=== PATIENT | female | born 1970 | race Caucasian/White ===

== ENCOUNTER 2020-08-31 10:25 | Outpatient (CLI) | payer SELFPAY ==
--- NOTE | 2020-08-31 10:35 | USCV_ITS ---
Martha Curran Age: 50 Gender: F : 1970 Exam Date: 08/31/2020 10:52 Ordering Phys: Maico Winter XX Technologist: KATIE Exam Location: [facility] – [place] Indication: Left leg swelling HISTORY: Left lower extremity swelling. PROCEDURES: Comparison: none available. Venous duplex imaging was performed in only the left lower extremity. The following venous structures were evaluated: common femoral vein, profunda vein, proximal portion of the greater saphenous vein, superficial femoral vein, and the popliteal vein. In addition, the posterior tibial and peroneal trunk were evaluated. Serial compression and spectral Doppler flow evaluation were performed. FINDINGS: POSITIVE DEEP VEIN THROMBOSIS OF THE LEFT COMMON FEMORAL VEIN, PROXIMAL DEEP FEMORAL VEIN, FEMORAL VEIN, POPLITEAL VEIN AND PERONEAL TRUNK. CONCLUSIONS Acute left lower extremity deep venous thrombosis. Dr. Bridgett Eid DO (Electronically Signed) Final Date: 31 August 2020 11:20 S
== END 2020-08-31 10:26 | disposition home or self-care (01) ==
PROVIDERS: PCP Nurse Practitioner Family; Visit Provider Nurse Practitioner Family
DX: M79.89 Other specified soft tissue disorders (principal); I82.492 Acute embolism and thrombosis of other specified deep vein of left lower extremity
CPT/HCPCS: 93971

== ENCOUNTER 2020-08-31 11:24 | Observation (INO) | payer SELFPAY ==
[2020-08-31] VITALS (9 sets, daily range): BP systolic 152–182; BP diastolic 84–116; PULSE 76–103; RESP 17–18; TEMP 36.6–36.9; O2SAT 96–99; BMI 37.5
--- NOTE | 2020-08-31 12:30 | CT_ITS ---
WS: [id number] CT CHEST ANGIOGRAPHY WITH REFORMATS HISTORY: r/o PE. she has dvt and tachycardia TECHNIQUE: Contiguous axial images are obtained through the chest during arterial injection of intrav enous contrast. Images are reconstructed to evaluate the pulmonary arteries. MIP imaging also reviewe d. All CT scans at [facility] use at least one of these dose optimization techniques: aut omated exposure control; mA and/or kV adjustment per patient size (includes targeted exams where dose is matched to clinical indication); or iterative reconstruction. CONTRAST: Omnipaque 350; 95 mL IV. DLP: 599.09 mGy.cm COMPARISON: None available. Adequate opacification of the pulmonary arteries. Significant embolic burden beginning in the distal RIGHT main pulmonary artery extending into the lobar through subsegmental arteries of the RIGHT lower lobe. No definite emboli in the upper lung burgess the RIGHT middle lobe. No LEFT lower lobe and volu me disease. Normal size aorta. Pulmonary artery is slightly enlarged. There is no RIGHT heart strain at this time . LEFT ventricle is mildly dilated. No pericardial or pleural effusions. Benign pulmonary granulomas. No pulmonary infarct or nodules. Linear atelectasis near the lingula. Increased soft tissue in the AP window is probably a cluster of lymph nodes. The entire cluster measu res 19 x 18 mm. No additional suspicious lymph nodes. Prior cholecystectomy. No adrenal mass. Visualized liver and spleen are normal. CT/CT angio chest PE protcl [id number] IMPRESSION: 1. Moderate pulmonary embolic burden beginning in the distal RIGHT main pulmon gabino artery into the RIGHT lower lobe pulmonary artery. 2. No RIGHT heart strain. 3. No pneumonia or infarct. 4. Indeterminate cluster of lymph nodes at the AP window. Recommend follow-up chest CT in 3 months with IV contrast.
--- NOTE | 2020-08-31 12:31 | ECG_ITS ---
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 Measurements Intervals [place] Rate: 77 P: 2 SD: 131 QRS: -16 QRSD: 102 T: -37 QT: 382 QTc: 433 Interpretive Statements SINUS RHYTHM INFERIOR MYOCARDIAL INFARCTION , OF INDETERMINATE AGE [40+ ms Q WAVE AND/OR ST/T ABNORMALITY IN II/aVF] No previous ECG available for comparison Electronically Signed On 09-01-2020 7:19:36 CDT by Bri Meraz M.D. [id number]
--- NOTE | 2020-08-31 12:34 | PC.PHAR ---
pt states she hasnt been on rx medications for over a year pt states she was waiting on her insurance-pt states she use to be on novolin r-yenvwn-xcorvxaukz-and zocor but hasnt had in a year-pt states she has only been taking ibu and tylenol
[2020-08-31 13:17] LABS: Basophils % 0.5 %; Eosinophils # 0.2 10^3/uL (0.0-0.8); Eosinophils % 3.7 %; Hematocrit 42.9 % (37.0-47.0); Hemoglobin 14.6 g/dL (11.5-15.3); Lymphocytes # 2.2 10^3/uL (0.8-4.8); Lymphocytes % 33.5 %; Mean Corpuscular Hemoglobin 29.3 pg (28.0-34.0); Mean Corpuscular Volume 86.1 fL (81-99); Mean Platelet Volume 9.8 fL (7.4-10.4); Monocytes # 0.4 10^3/uL (0.2-0.9); Monocytes % 6.6 %; Neutrophils # 3.63 10^3/uL (1.8-7.7); Neutrophils % 55.5 %; Nucleated Red Blood Cells % 0 %; Platelet Count 188 10^3/cmm (130-400); Red Blood Count 4.98 10^6/uL (4.1-5.3); Red Cell Distribution Width 12.5 % (12.1-15.1); White Blood Count 6.5 10^3/uL (4.0-10.0)
[2020-08-31] MEDS: iohexol 300 mg/mL 100 mL Btl IV (13:37)
[2020-08-31 13:40] LABS: Troponin(5th) Baseline 7 ng/L (0-10)
[2020-08-31 13:44] LABS: Alanine Aminotransferase 11 U/L (0-33); Alkaline Phosphatase 90 IU/L (35-105); Anion Gap 16.1 (5-19); Aspartate Amino Transferase 14 U/L (0-32); Blood Urea Nitrogen 8 mg/dL (6-20); Calcium 8.7 mg/dL (8.5-10.5); Carbon Dioxide 24 mmol/L (22-29); Chloride 99 mmol/L (98-107); Globulin 2.6 g/dL (1.3-4.6); Glomerular Filtration Rate 131.1 mL/min (90-130); Glucose 273 mg/dL (65-115); Osmolality Calculated 288 mOsm/kg (285-295); Potassium 4.1 mmol/L (3.5-5.1); Sodium 135 mmol/L (136-145); Total Bilirubin 0.2 mg/dL (0.15-1.2); Total Protein 6.6 g/dL (6.6-8.7)
--- NOTE | 2020-08-31 14:17 | ED_ITS ---
HPI - Extremity Problem General: Chief complaint: Extremity Problem,Nontraumatic Stated complaint: BLOOD CLOT Time Seen by Provider: 08/31/20 12:13 History of Present Illness: HPI Narrative: The patient comes to the ER with a confirmed ultrasound showing left lower extremity DVT to the femoral vein. Extending distally to the peroneal vein. She says she has had left leg pain and swelling for the past week at home and her primary ordered an ultrasound which was done this morning and showed a blood clot so she was told to go to the ER. Denies shortness of breath and chest pain but her pulse was 103 on arrival. MD Complaint: extremity pain and extremity swelling Onset (ago): day(s) (6) Pain Consistency: constant Location: left Quality: sharp Radiation: none Relieving factors: nothing Associated symptoms: Reports no associated symptoms; Deny chest pain or rash Review of Systems General: Reports: 10 or more systems reviewed and unremarkable except in HPI and below Const: Denies: fatigue Eyes: Denies: change in vision, blurry vision or eye redness ENMT: Denies: throat pain, swelling of lips/tongue, ear or mastoid pain or nasal congestion Card: Denies: chest pain, palpitations, irregular heart rhythm, edema, dyspnea on exertion or orthopnea Resp: Denies: dyspnea, productive cough or non-productive cough GI: Denies: abdominal pain, diarrhea or GI cramping : Denies: flank pain, difficulty voiding, urinary frequency or urinary urgency Musc: Reports: extremity pain and extremity swelling; Denies: neck pain, back pain, joint pain, joint redness, limited range of motion or muscle weakness Skin/Breast: Denies: rash, pruritus, erythema, skin pain or skin tenderness Neuro: Denies: headache(s), numbness in extremities, weakness in extremities, sensory changes, difficulty walking, dizziness, confusion or Slurred speech present Psych: Denies: anxiety or depression Endo: Denies: polyuria All/Imm: Denies: urticaria, throat swelling or tongue swelling Physical Exam Const: COMMON NORMALS: no acute distress, average body habitus, patient oriented x3, no limitations, healthy appearing, alert and well nourished GENERAL APPEARANCE: cooperative, comfortable, well kempt and well developed ORIENTATION/CONSCIOUSNESS: Yes awake, Yes oriented to person, Yes oriented to place and Yes oriented to time HENMT: COMMON NORMALS: normocephalic, external ears normal and Normal external nose present HEAD & SCALP: normal to inspection and normocephalic NOSE: Normal external nose present EXTERNAL EAR: Yes external ears normal MOUTH: Normal oral and palatal mucosa present THROAT: posterior oropharynx normal Eye: COMMON NORMALS: Equal, round and reactive pupils present and EOMs intact bilaterally GENERAL EYE: appearance normal, both eyes and all related structures PUPIL: Yes Equal, round and reactive pupils present Neck/C-Spine: COMMON NORMALS: full ROM, no lymphadenopathy, no meningeal signs and no JVD GENERAL: Yes normal visual inspection Lymph: LYMPHATIC: no lymphadenopathy noted Chest: COMMONS NORMALS: normal inspection of the chest and normal palpation of entire chest wall Resp: COMMON NORMALS: normal respiratory effort, No retractions, No use of accessory muscles, clear to auscultation bilaterally and percussion normal EFFORT & INSPECTION: Yes able to speak in complete sentences AUSCULTATION: clear to auscultation bilaterally PERCUSSION: percussion normal Cardio: COMMON NORMALS: no JVD, regular rhythm, S1 normal heart sound present, S2 normal heart sound present and Peripheral pulses 2+ throughout RATE: tachycardic RHYTHM: regular rhythm HEART SOUNDS: S1 normal heart sound present and S2 normal heart sound present PERIPHERAL PULSES: Peripheral pulses 2+ throughout GI: COMMON NORMALS: Normal to inspection, nondistended, normoactive bowel sounds present, Soft to palpation, non-tender and no masses INSPECTION: Yes normal to inspection PALPATION: Yes Soft to palpation : COMMON NORMALS: Yes no CVA tenderness BLADDER/KIDNEY EXAM: Yes no CVA tenderness Back/Pelvis: COMMON NORMALS: no CVA tenderness, thoracic and lumbar spine normal to inspection, no thoracic nor lumbar tenderness and thoraco-lumbar ROM normal Extremity: COMMON NORMALS: normal to inspection, full ROM, capillary refill normal, no joint enlargement and no pedal edema GENERAL: Yes normal exam except as noted Neuro: COMMON NORMALS: patient oriented x3, CN's II-XII intact bilaterally, moves all extremities, no focal motor deficits, no sensory deficits noted and gait normal SENSORIUM/ORIENTATION: Yes alert, Yes oriented to person, Yes oriented to place and Yes oriented to time MENINGEAL SIGNS: Yes no meningeal signs Psych: COMMON NORMALS: mental status grossly normal, Normal thought process present, cooperative, normal affect and speech normal APPEARANCE: Yes well kempt ATTITUDE: Yes calm SPEECH: Yes normal speech THOUGHT PROCESS: Normal thought process present Skin: COMMON NORMALS: no rashes or lesions noted GENERAL SKIN EXAM: no rashes or lesions noted Course Vital Signs: Vital signs: Vital Signs Temperature 98.4 F 08/31/20 11:57 Pulse Rate 88 08/31/20 15:08 Respiratory Rate 18 08/31/20 15:08 Blood Pressure 152/91 08/31/20 12:45 Pulse Oximetry 98 08/31/20 15:08 MDM - Extremity (Nontraumatic) MDM Narrative: Medical decision making narrative: The patient is a 50-year-old female who comes to the ER with a left lower extremity DVT from the peroneal to the common femoral vein. Her heart rate was also elevated on arrival so prompted a PE investigation which does show moderate PE burden beginning in the right distal main pulmonary artery into the right lower lobe pulmonary artery. No right heart strain. No pneumonia or infarct. Discussed with Dr. Denney who accepts for admission. She was started on Lovenox subcu. Lab Data: Labs: Lab Results 08/31/20 08/31/20 08/31/20 Range/Units 13:10 13:10 13:10 WBC 6.5 (4.0-10.0) 10^3/ uL RBC 4.98 (4.1-5.3) 10^6/u L Hgb 14.6 (11.5-15.3) g/dL Hct 42.9 (37.0-47.0) % MCV 86.1 (81-99) fL MCH 29.3 (28.0-34.0) pg MCHC 34.0 (30.0-36.0) g/dL RDW 12.5 (12.1-15.1) % Plt Count 188 (130-400) 10^3/c mm MPV 9.8 (7.4-10.4) fL Neut % (Auto) 55.5 % Lymph % (Auto) 33.5 % Bowie % (Auto) 6.6 % Eos % (Auto) 3.7 % Baso % (Auto) 0.5 % Neut # (Auto) 3.63 (1.8-7.7) 10^3/u L Lymph # (Auto) 2.2 (0.8-4.8) 10^3/u L Bowie # (Auto) 0.4 (0.2-0.9) 10^3/u L Eos # (Auto) 0.2 (0.0-0.8) 10^3/u L Baso # (Auto) 0.0 (0.0-0.1) 10^3/u L Nucleated RBC % (a uto) 0 % Nucleated RBCs # 0.0 /100WBC Sodium 135 L (136-145) mmol/L Potassium 4.1 (3.5-5.1) mmol/L Chloride 99 (98-107) mmol/L Carbon Dioxide 24 (22-29) mmol/L Anion Gap 16.1 (5-19) BUN 8 (6-20) mg/dL Creatinine 0.5 (0.5-0.9) mg/dL GFR Calculation 131.1 H (90-130) mL/min Glucose 273 H (65-115) mg/dL Calculated Osmolal ity 288 (285-295) mOsm/k g Calcium 8.7 (8.5-10.5) mg/dL Total Bilirubin 0.2 (0.15-1.2) mg/dL AST 14 (0-32) U/L ALT 11 (0-33) U/L Alkaline Phosphata se 90 (35-105) IU/L Troponin T Baselin e 7 (0-10) ng/L Total Protein 6.6 (6.6-8.7) g/dL Albumin 4.0 (3.5-5.2) g/dL Globulin 2.6 (1.3-4.6) g/dL Discharge Plan Discharge Patient Disposition: Admitted As Inpatient Admit Provider: Giovany Ko Clinical Impression: Deep vein thrombosis of lower extremity, Pulmonary embolism Condition: Stable Coding Level of Care Code ED Restaurant Expeditor for g Fwd Exam Comprehensive
[2020-08-31] MEDS: enoxaparin 100 mg/mL Syringe 90 MG SUBCUT (14:21)
--- NOTE | 2020-08-31 14:31 | ECG_ITS ---
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 Measurements Intervals [place] Rate: 72 P: 6 NC: 114 QRS: -15 QRSD: 109 T: -41 QT: 393 QTc: 432 Interpretive Statements SINUS RHYTHM WITH SHORT NC INTERVAL PROBABLE LATERAL MYOCARDIAL INFARCTION , PROBABLY OLD [35 ms Q WAVE IN I/aVL/V5/V6] INFERIOR MYOCARDIAL INFARCTION , OF INDETERMINATE AGE [40+ ms Q WAVE AND/OR ST/T ABNORMALITY IN II/aVF] Compared to ECG 08/31/2020 12:51:50 Short NC interval now present Myocardial infarct finding still present Electronically Signed On 09-01-2020 7:42:44 CDT by Bri Meraz M.D. [id number]
[2020-08-31 15:29] LABS: Troponin 5 2HR 6.75 ng/L (0-10)
[2020-08-31 15:31] LABS: Troponin 5 2HR Delta -0.25 ABS# (0-10)
--- NOTE | 2020-08-31 16:20 | PC.NURSE ---
Nurse Notified of bp.
--- NOTE | 2020-08-31 17:00 | P.HP_ITS ---
Providers/Chief Complaint Admitting Physician: Giovany Ko Primary Care Provider: Maico Winter Chief Complaint: BLOOD CLOT History of Present Illness Very pleasant 50-year-old lady with history of diabetes, and believes she had had COVID-19 back in April, with secondhand smoke exposure was assessed by ultrasound by her primary care provider due to about a weeks length of left lower extremity swelling, tenderness, with finding of left lower extremity DVT, including common femoral. Initially presentation to ER noted to have sinus tachycardia 103. Was assessed by CT angiogram of the chest with finding of moderate pulmonary embolic burden in distal right main pulmonary artery into the right lower lobe pulmonary artery. No right heart strain. She denies chest pain or pressure peer denies shortness of breath. She denies any control. States she has history of tubal ligation. She denies any hormonal therapy. She states she did complete her second shot of coronavirus vaccine on 08/17. Review of Systems Const: Denies: fever(s), chills, body aches or malaise Eyes: Denies: change in vision or eye redness ENMT: Denies: throat pain, oral sores or ear or mastoid pain Card: Denies: chest pain, edema, pre-syncope or dyspnea on exertion Resp: Denies: dyspnea, productive cough, change in phlegm color or hemoptysis GI: Denies: abdominal pain, nausea, vomiting, diarrhea, constipation, hematochezia or melena : Denies: flank pain, urinary frequency or hematuria Musc: Reports: other (LLE swelling, pain); Denies: back pain, joint swelling or joint redness Skin/Breast: Denies: rash, sores or new lesions Neuro: Denies: headache(s), numbness in extremities, weakness in extremities, dizziness, confusion or seizure-like activity Endo: Denies: polyuria or polydipsia Babar/Lymph: Denies: easy bleeding or purpura All/Imm: Denies: urticaria, throat swelling or tongue swelling Medications/Allergies Home Medications Medication Instructions Recorded Confirmed Last Taken Type acetaminophen [Tylenol Extra 1,000 mg PO PRN 08/31/20 08/31/20 Unknown History Strength] ibuprofen 600 mg PO PRN 08/31/20 08/31/20 08/31/20 09:00 History Allergies Allergy/AdvReac Type Severity Reaction Status Date / Time Penicillins Allergy ADR-Swelling Verified 08/31/20 12:34 of the Eye PFSH Acute PFSH: Medical History DM type 2 (diabetes mellitus, type 2) Surgical History Hx of section Hx of cholecystectomy Family History (Updated 08/31/20 @ 17:21 by Giovany Ko MD) Mother Cancer Breast cancer Grandmother Cancer Father Cancer Lung cancer Grandfather VTE (venous thromboembolism) Social History Second hand smoke exposure: Yes Alcohol intake: never Substance/Drug Use: never Lives independently: Yes Household members: significant other Vitals/I&O/Wt Last Vital Signs Temp 97.8 F 08/31/20 16:00 Pulse 76 08/31/20 16:00 Resp 17 08/31/20 16:00 BP 166/98 08/31/20 16:00 Pulse Ox 99 08/31/20 16:00 Weight last 48 hrs Weight 92.986 kg Data : 08/31/20 13:10 08/31/20 13:10 A&P Assessment and plan (1) Pulmonary embolism: Unclear whether there had been a provoking event. Reports symptoms for about a week. Left lower extremity VTE found on ultrasound requested by her PCP. She reports she may have had COVID-19 in April. She reports she had just completed second dose of COVID-19 vaccine on 08/17. Appears it would give about 7 days since the second dose, and onset of her symptoms. She does state she had been somewhat less mobile after her illness. She does not smoke. She is not on any hormone therapy. Not entirely clear that this is related to the vaccination, however, will discuss with pharmacy regarding whether this should be reported. We discussed anticoagulation. She started on Lovenox and ER. Discussed subsequently switching to oral anticoagulation. We will assess TTE. Monitor oxygenation, blood pressure, heart rates. Status: Acute (2) Deep vein thrombosis of lower extremity: Initiated on anticoagulation as above. Ultrasound reports VTE including common femoral vein. We will try to see if we can get a limited study to assess more proximal veins. Discussed with her in case of concern symptoms, iliofemoral VTE, consideration may be given as well to catheter directed TPA. She understands that this procedure is not available at the current facility. We discussed also regarding possibility of post phlebitis syndrome, especially with more proximal VTE. Discussed strategies going forward to reduce the symptoms. Status: Acute (3) DM type 2 (diabetes mellitus, type 2): Currently not on any medications. She states she is setting up with a new PCP. Previously on insulin. She is planning to follow-up with her primary provider regarding diabetes. Will monitor glucose here, sliding scale insulin as needed. Consistent carbohydrate diet. Status: Acute Attestations Medical Necessity Statement*: Place in observation for assessment management of proximal VTE, moderate burden PE, initiation of anticoagulation. Coding Level of Care Code Acute Reimbursement Coordinator for Carrie Bar Diagnoses Pulmonary embolism I26.99 Deep vein thrombosis of lower extremity I82.409 DM type 2 (diabetes mellitus, type 2) E11.9
[2020-08-31 17:45] LABS: Glucose Point of Care 209 mg/dL (70-110)
[2020-08-31] MEDS: acetaminophen 325 mg Tablet 650 MG PO ×2 (18:30→21:25)
--- NOTE | 2020-08-31 18:31 | ECG_ITS ---
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 Measurements Intervals [place] Rate: 80 P: 27 HI: 145 QRS: -11 QRSD: 88 T: -46 QT: 377 QTc: 435 Interpretive Statements SINUS RHYTHM INFERIOR MYOCARDIAL INFARCTION [40+ ms Q WAVE AND/OR ST/T ABNORMALITY IN II/aVF], OF INDETERMINATE AGE Compared to ECG 08/31/2020 14:45:08 Short HI interval no longer present Myocardial infarct finding still present Electronically Signed On 09-01-2020 7:28:22 CDT by Bri Meraz M.D. [id number]
[2020-08-31 20:12] LABS: Troponin 5 6HR 10.03 ng/L (0-10); Troponin 5 6HR Delta 3.03 ng/L (0-12)
[2020-08-31 21:05] LABS: Glucose Point of Care 225 mg/dL (70-110)
[2020-08-31] MEDS: labetalol 5 mg/mL SDV 20mL 10 MG IVP (21:17)
[2020-08-31] MEDS: lisinopril 10 mg Tablet PO (23:49)
--- NOTE | 2020-08-31 23:50 | PC.NURSE ---
Lisinopril scan did not save when scanned at 2115.
[2020-09-01] VITALS (9 sets, daily range): BP systolic 143–162; BP diastolic 81–84; PULSE 78–101; RESP 18; TEMP 36.8–37.1; O2SAT 95–98
[2020-09-01] MEDS: enoxaparin 100 mg/mL Syringe 90 MG SUBCUT ×2 (01:46→14:57)
[2020-09-01] MEDS: acetaminophen 325 mg Tablet 650 MG PO ×2 (05:02→17:29)
[2020-09-01 05:20] LABS: Basophils % 0.6 %; Eosinophils # 0.3 10^3/uL (0.0-0.8); Eosinophils % 4.2 %; Hematocrit 40.2 % (37.0-47.0); Hemoglobin 13.5 g/dL (11.5-15.3); Lymphocytes # 2.4 10^3/uL (0.8-4.8); Lymphocytes % 32.8 %; Mean Corpuscular HGB Conc 33.6 g/dL (30.0-36.0); Mean Corpuscular Hemoglobin 29.2 pg (28.0-34.0); Mean Platelet Volume 9.7 fL (7.4-10.4); Monocytes # 0.5 10^3/uL (0.2-0.9); Monocytes % 6.8 %; Neutrophils # 3.96 10^3/uL (1.8-7.7); Neutrophils % 55.3 %; Nucleated Red Blood Cells % 0 %; Platelet Count 184 10^3/cmm (130-400); Red Blood Count 4.62 10^6/uL (4.1-5.3); Red Cell Distribution Width 12.7 % (12.1-15.1); White Blood Count 7.2 10^3/uL (4.0-10.0)
[2020-09-01 05:41] LABS: Anion Gap 15.9 (5-19); Blood Urea Nitrogen 10 mg/dL (6-20); Calcium 8.5 mg/dL (8.5-10.5); Carbon Dioxide 23 mmol/L (22-29); Chloride 101 mmol/L (98-107); Glomerular Filtration Rate 131.1 mL/min (90-130); Glucose 278 mg/dL (65-115); Osmolality Calculated 291 mOsm/kg (285-295); Potassium 3.9 mmol/L (3.5-5.1); Sodium 136 mmol/L (136-145)
--- NOTE | 2020-09-01 06:00 | USR_ITS ---
PROCEDURE INFORMATION: Exam: US Duplex Lower Extremity Veins, Bilateral Exam date and time: 09/01/2020 2:38 PM Age: 50 years old Clinical indication: Edema, localized; Lower extremity, left; Additional info: Proximal vte - assess for ileofemoral vte TECHNIQUE: Imaging protocol: Real-time duplex ultrasound of the extremities with 2-D martinez scale, color Doppler flow and spectral waveform analysis with image documentation. Complete exam focused on the bilateral lower extremity veins. COMPARISON: Ultrasound duplex lower extremity veins, left dated 08/31/2020. FINDINGS: Right deep veins: Unremarkable. The common femoral, femoral, proximal profunda femoral and popliteal veins are patent without thrombus. Normal Doppler waveforms. Normal compressibility and/or augmentation response. Right superficial veins: Saphenofemoral junction is patent without thrombus. Left deep veins: Left common femoral vein, left femoral vein, left peroneal vein, and left posterior tibial vein are thrombosed. The left iliac vein is patent. Left superficial veins: Saphenofemoral junction is patent without thrombus. Soft tissues: Unremarkable. US/CV venous duplex [facility] [id number] IMPRESSION: 1. Persistent left deep vein thrombosis from the common femoral vein through the visualized calf veins. No evidence of propagation of the thrombus into the left iliac vein. Left lower extremity veins are unchanged from the previous study. 2. No deep vein thrombosis, right lower extremity.
[2020-09-01 06:17] LABS: Glucose Point of Care 312 mg/dL (70-110)
[2020-09-01] MEDS: lisinopril 10 mg Tablet PO (08:41)
[2020-09-01 11:12] LABS: Glucose Point of Care 259 mg/dL (70-110)
--- NOTE | 2020-09-01 16:48 | USCV_ITS ---
Martha Curran Age: 50 Gender: F : 1970 Exam Date: 09/01/2020 14:56 Ordering Phys: Giovany Ko MD Technologist: Exam Location: [facility] [place] Indication: PE BP: 154 / 77 HR: 87 Rhythm: Sinus Technical Quality: Poor MEASUREMENTS (Male / Female) Normal Values 2D ECHO LV Diastolic Diameter PLAX 3.7 cm 4.2 - 5.9 / 3.9 - 5.3 cm LV Systolic Diameter PLAX 2.4 cm IVS Diastolic Thickness 1.0 cm 0.6 - 1.0 / 0.6 - 0.9 cm IVS Systolic Thickness 1.3 cm LVPW Diastolic Thickness 0.7 cm 0.6 - 1.0 / 0.6 - 0.9 cm LVPW Systolic Thickness 1.2 cm LVOT Diameter 2.0 cm LV Ejection Fraction 2D Teich 64.5 % LV Ejection Fraction MOD 2C 64.9 % LV Ejection Fraction 2C AL 66.3 % LA Diameter 3.1 cm LA Width 4.0 cm LA Height 4.2 cm RA Width 2.9 cm RA Height 3.3 cm M-MODE LV Diastolic Diameter MM 5.1 cm 4.2 - 5.9 / 3.9 - 5.3 cm LV Systolic Diameter MM 3.5 cm LV Ejection Fraction MM Teich 60.0 % IVS Diastolic Thickness MM 0.9 cm 0.6 - 1.0 / 0.6 - 0.9 cm IVS Systolic Thickness MM 1.3 cm LVPW Diastolic Thickness MM 1.2 cm 0.6 - 1.0 / 0.6 - 0.9 cm LVPW Systolic Thickness MM 1.5 cm RV Diastolic Diameter MM 1.1 cm Aortic Annulus Diameter 3.2 cm LA Ao Ratio MM 0.9 MV E Point Septal Separation 0.9 cm DOPPLER LVOT Peak Velocity 108.0 cm/s MV Area PHT 5.0 cm squared Mitral E to A Ratio 0.9 MV E' Velocity 39.5 cm/s Mitral E to MV E' Ratio 7.0 Mitral E to LV E' Lateral Ratio 7.2 Mitral E to LV E' Septal Ratio 6.9 TR Peak Velocity 130.0 cm/s TR Peak Gradient 6.8 mmHg TV Peak E Velocity 97.0 cm/s Right Atrial Pressure 3.0 mmHg Pulmonary Artery Systolic Pressu 9.8 mmHg FINDINGS Left Ventricle Right Ventricle Right Atrium Left Atrium Mitral Valve Structurally normal mitral valve. No mitral valve stenosis. No mitral valve regurgitation. Aortic Valve Aortic valve sclerosis without stenosis or regurgitation. Tricuspid Valve Pulmonic Valve Pericardium Aorta CONCLUSIONS Limited study due to suboptimal image quality 1-Left ventricle ejection fraction appeared to be normal. Left ventricle ejection fraction estimated at at least 55 % 2-Structurally normal mitral valve. No mitral valve stenosis. No mitral valve regurgitation. 3-Aortic valve sclerosis without stenosis or regurgitation. 4-Pulmonic and tricuspid valve not well visualized 5-There is no pericardial effusion. 6-Right atrial pressure is around 5 mm of mercury. 7-There are no prior echocardiogram studies to compare. Molly Feliciano MD (Electronically Signed) Final Date: 12 Sep 2020 22:32 S
[2020-09-01 16:53] LABS: Glucose Point of Care 274 mg/dL (70-110)
[2020-09-01] MEDS: apixaban 5 mg Tablet 10 MG PO (18:49)
--- NOTE | 2020-09-01 22:05 | PM.DCS ---
Discharge Providers Date of Admission: 08/31/20 14:15 Date of Discharge: September 01, 2020 Attending Provider at Admission: Giovany Ko Attending Provider at Discharge: Giovany Ko Primary Care Provider: Maico Winter Diagnoses at Discharge Discharge Diagnosis (1) Pulmonary embolism: Status: Acute (2) Deep vein thrombosis of lower extremity: Status: Acute (3) DM type 2 (diabetes mellitus, type 2): Status: Acute (4) HTN (hypertension): Status: Acute Reason for Visit Reason for Visit: BLOOD CLOT Hospital Course Hospital Course Very pleasant 50-year-old lady was placed in observation for assessment management after finding of proximal/common femoral VTE on ultrasonography performed by her primary care provider due to left lower extremity of about 2 weeks duration. She states the swelling started about a week after she had received the second COVID-19 shot. She also thinks she may have had COVID-19 back in April. On presentation also with sinus tachycardia 103, underwent assessment by CTA with finding of moderate burden PE in distal right main pulmonary artery into the right lower lobe pulmonary artery. No right heart strain. She had no chest pain or pressure. Denied any shortness of breath. Had no hemoptysis. Tachycardia subsequently resolved. She remained saturating well on room air. Maintain blood pressure as well. Was initiated on anticoagulation with Lovenox. Tolerated this well. Was additionally assessed by bilateral duplex since prior duplex terminated at the common femoral veins. Ileal veins noted to be free of clot. Was assessed by TTE, although results of this are still pending. Discussed with her that this result is not back yet will need to be followed up. Since otherwise she has been doing much better, feeling better, she has been elevating her leg with improvement in swelling. Discussed returning home with oral anticoagulation. We discussed different options, and settled on Eliquis. She is notified to start this tonight which she intends to do. We also discussed concerning symptoms that should prompt her to return to ER. She otherwise is also going to watch out for swelling/redness/tenderness in her leg which may be related to post phlebitis syndrome. She will consider in that case procuring compression stockings. Although it is not clear that the VTE was related to vaccination, due to close temporal proximity of about a week, VAERS was done with the help of pharmacy. Due to noted hyperglycemia during hospitalization she is started on Metformin and she intends to follow-up with her primary care provider for additional optimization of medical treatment of diabetes, and also due to noted hypertension as discussed with her she will be monitoring blood pressures in addition to glucose, and is started on lisinopril and will follow up with primary provider for further optimization. Physical Exam Const: COMMON NORMALS: no acute distress and patient oriented x3 HENMT: COMMON NORMALS: oropharynx normal Neck/C-Spine: COMMON NORMALS: no JVD Resp: COMMON NORMALS: normal respiratory effort and clear to auscultation bilaterally AUSCULTATION: clear to auscultation bilaterally Cardio: COMMON NORMALS: no JVD, regular rhythm, S1 normal heart sound present, S2 normal heart sound present and No murmurs present (Cardio) RHYTHM: regular rhythm HEART SOUNDS: S1 normal heart sound present and S2 normal heart sound present GI: COMMON NORMALS: Normal to inspection, nondistended, normoactive bowel sounds present, Soft to palpation and non-tender PALPATION: Yes Soft to palpation Extremity: COMMON NORMALS: no joint enlargement OTHER: Minimal swelling left lower extremity Neuro: COMMON NORMALS: patient oriented x3 and moves all extremities Skin: COMMON NORMALS: no rashes or lesions noted GENERAL SKIN EXAM: no rashes or lesions noted Discharge Data Data Completed and Pending: Completed Studies During Hospitalization Category Date Time Status CT angio chest PE protcl [id number] Urge nt Cat Scan 08/31/20 12:30 [place] [id number] Routin e Ultrasound 09/01/20 06:00 Completed Pending at discharge Category Date Time Status CV echo complete* [id number] Routine Ultrasound 09/01/20 16:48 Taken Labs from last 24 hours 09/01/20 09/01/20 09/01/20 16:50 11:05 06:12 WBC RBC Hgb Hct MCV MCH MCHC RDW Plt Count MPV Neut % (Auto) Lymph % (Auto) [place] % (Auto) Eos % (Auto) Baso % (Auto) Neut # (Auto) Lymph # (Auto) [place] # (Auto) Eos # (Auto) Baso # (Auto) Nucleated RBC % (a uto) Nucleated RBCs # Sodium Potassium Chloride Carbon Dioxide Anion Gap BUN Creatinine GFR Calculation Glucose POC Glucose 274 H 259 H 312 H Calculated Osmolal ity Calcium 09/01/20 09/01/20 04:44 04:44 WBC 7.2 RBC 4.62 Hgb 13.5 Hct 40.2 MCV 87.0 MCH 29.2 MCHC 33.6 RDW 12.7 Plt Count 184 MPV 9.7 Neut % (Auto) 55.3 Lymph % (Auto) 32.8 [place] % (Auto) 6.8 Eos % (Auto) 4.2 Baso % (Auto) 0.6 Neut # (Auto) 3.96 Lymph # (Auto) 2.4 [place] # (Auto) 0.5 Eos # (Auto) 0.3 Baso # (Auto) 0.0 Nucleated RBC % (a uto) 0 Nucleated RBCs # 0.0 Sodium 136 Potassium 3.9 Chloride 101 Carbon Dioxide 23 Anion Gap 15.9 BUN 10 Creatinine 0.5 GFR Calculation 131.1 H Glucose 278 H POC Glucose Calculated Osmolal ity 291 Calcium 8.5 Vitals: Last Vital Signs Temp 98.2 F 09/01/20 17:55 Pulse 78 09/01/20 17:55 Resp 18 09/01/20 17:55 BP 162/82 09/01/20 17:55 Pulse Ox 96 09/01/20 17:56 Discharge Plan Discharge Patient Disposition: Home Condition: Stable Prescriptions: New diclofenac sodium 1 % Gel 1 ea topical QID Qty: 100 RF: 0 lisinopril 10 mg Tablet 10 mg PO DAILY Qty: 30 RF: 0 Eliquis DVT-PE Treat 30D Start 5 mg (74 tabs) tablets,dose pack See Rx Instructions .ROUTE .COMPLEX Qty: 74 RF: 0 metformin 1,000 mg tablet 1,000 mg PO BID Qty: 60 RF: 0 Continued Tylenol Extra Strength 500 mg Tablet 1,000 mg PO PRN RF: 0 Discontinued ibuprofen 200 mg Tablet 600 mg PO PRN RF: 0 Discharge Orders: Discharge Order (Routine); Ordered 09/01/20 Ordered By: Giovany Ko Referrals: Maico Winter [Primary Care Provider] - 4-7 days Discharge Diet: Cardiac Discharge Activity: Increase activity as tolerated Patient Instructions: Lisinopril (By mouth), Metformin (By mouth), Diclofenac (On the skin), Apixaban (By mouth), Pulmonary Embolism (GEN), Deep Venous Thrombosis (GEN), Hypertension (GEN) Activity Restrictions/Additional Instructions: Please make sure you start taking the blood thinner medication tonight. This is important as otherwise the blood clots may progress and may result in life threatening complications. Please do not stop taking blood thinner medications unless directed by her doctor. Please do watch for any bleeding, these medications will increase your risk of bleeding. Please do your best to avoid any injury. If you experience any bleeding, please seek medical attention without delay. Please follow-up with your primary provider at soonest available appointment to reassess diabetes and optimize control. Your blood glucose has been elevated here. Please also discuss with your primary doctor regarding control of hypertension. You are started on blood pressure medication. You are also restarted on a diabetes medication with Metformin. If you are experiencing swelling in your left lower extremity, redness, tenderness, you may be experiencing also post phlebitis syndrome. Consider obtaining compression stockings after measuring your leg circumference first thing in the morning. Consider obtaining thigh-high stockings of 30-40 mmHg compression. Discharge Attestations Time Spent in Discharge Care*: greater than 30 min Quality Metrics Clinical Quality Measures During this hospital stay, did patient experience: VTE Contraindication to Overlap Therapy: Overlap therapy prescribed VTE Discharge Education: Education about anticoagulant therapy/Care Notes given Deep Vein Thrombosis/Pulmonary Embolism Present on Admission: Yes Coding Level of Care Code Acute [facility] note Diagnoses Pulmonary embolism I26.99 Deep vein thrombosis of lower extremity I82.409 DM type 2 (diabetes mellitus, type 2) E11.9 HTN (hypertension) I10
== END 2020-09-01 18:49 | disposition home or self-care (01) ==
LOC: ER 14:21 → MEDSURG 15:04
PROVIDERS: Admitting Provider Internal Medicine; Emergency Provider Family Medicine; PCP Nurse Practitioner Family; Visit Provider Internal Medicine
DX: I26.99 Other pulmonary embolism without acute cor pulmonale (principal); I82.409 Acute embolism and thrombosis of unspecified deep veins of unspecified lower extremity; E11.9 Type 2 diabetes mellitus without complications; I10 Essential (primary) hypertension
CPT/HCPCS: 36415; 36416; 71275; 80048; 80053; 82962; 84484; 85025; 93005; 93306; 93970; 94664; 96361; 96372; 96374; 99285; G0378; J1650; J1815; J3490; Q9967

== ENCOUNTER 2021-10-16 09:38 | Oncology outpatient (recurring) (ONCR) | payer MEDICAID, SELFPAY | END 2021-11-01 23:59 | disposition home or self-care (01) | LOC: ONCMED 09:42 | PROVIDERS: PCP Nurse Practitioner Family; Visit Provider Internal Medicine Medical Oncology | DX: I82.412 Acute embolism and thrombosis of left femoral vein (principal); I82.432 Acute embolism and thrombosis of left popliteal vein; Z86.711 Personal history of pulmonary embolism | CPT/HCPCS: 99204 ==